=== PATIENT | female | born 1990 | race Caucasian/White ===

== ENCOUNTER 2021-07-05 07:49 | Outpatient (CLI) | payer OTHER, SELFPAY ==
--- NOTE | ~2021-07-05 | US_ITS ---
EXAMINATION: US thyroid EXAM DATE: 07/05/2021 08:44 INDICATION: Thyroid nodule evaluation, growth. TECHNIQUE: Multiple grayscale and Doppler images of the thyroid were obtained (by a technologist who performed the scan) and subsequently reviewed. Individual nodules and recommendations may be reporte d in accordance with TI-RADS system as designated by the 2017 ACR White Paper TI-RADS committee. The re is no prior study for comparison. FINDINGS: The right thyroid lobe measures 4.0 x 1.8 x 1.2 cm, the left measuring 5.4 x 1.8 x 1.1 cm. Dimensions mildly enlarged. There is homogeneous thyroid echogenicity with expected amount of vascularity. Florencia ral thyroid nodules measuring up to 5 mm in size, not likely clinically significant. IMPRESSION: Mild thyromegaly. Return to clinical follow-up and if additional palpable abnormality dev elops a repeat ultrasound can be obtained. Reviewed, dictated and finalized at location B. D CARE EDUCATION COORDINATOR IMPRESSION: Mild thyromegaly. Return to clinical follow-up and if additional pa lpable abnormality develops a repeat ultrasound can be obtained.
== END 2021-07-05 07:50 | disposition home or self-care (01) ==
PROVIDERS: PCP Internal Medicine Geriatric Medicine; Visit Provider Internal Medicine Geriatric Medicine
DX: E04.9 Nontoxic goiter, unspecified (principal)
CPT/HCPCS: 76536

== ENCOUNTER 2023-02-27 09:19 | Emergency (ER) | payer OTHER, SELFPAY ==
--- NOTE | ~2023-02-27 | XR_ITS ---
EXAMINATION: XR toe 1st RT min 2V DATE: 02/27/2023 09:48 INDICATION: Right great toe injury. TECHNIQUE: 3 views of right great toe were obtained. COMPARISON: None. FINDINGS: There is a transverse fracture of base of first distal phalanx. The distal fracture fragmen t demonstrates 5 degrees plantar angulation. Joint spaces are normal. IMPRESSION: 1. Transverse fracture of base of first distal phalanx. Reviewed, dictated and finalized at location A.
[2023-02-27 09:30] VITALS: BP 128/84; PULSE 86; RESP 18; TEMP 36.8; O2SAT 100
--- NOTE | 2023-02-27 09:59 | ED.WOUNDLAC ---
HPI - Wound/Laceration General Chief Complaint: Wound/Laceration Stated Complaint: Laceration Right Big Toe Time Seen by Provider: 02/27/23 09:56 Source: patient and RN notes reviewed Mode of arrival: ambulatory Limitations: no limitations History of Present Illness HPI narrative: 33 year old female presents with concern for injury to the 1st digit of her right foot. She reports prior to arrival she stubbed her toe on the concrete. She reports pain, bleeding. She is unsure of her tetanus status. Related Data Allergies Allergy/AdvReac Type Severity Reaction Status Date / Time No Known Allergies Allergy Verified 02/27/23 10:00 Review of Systems Review of Systems: CONSTITUTIONAL: Denies malaise, chills, sweats, or fever. SKIN: Reports bleeding to the 1st digit of the right foot MUSCULOSKELETAL: Reports pain, bleeding of the 1st digit of the right foot NEUROLOGIC: Denies numbness, weakness All systems reviewed & are unremarkable except as noted in HPI and below PMFSH Comments At time of signature, agree with nursing past medical, surgical, social and family history. There is no relevant family history pertinent to the presenting complaint Exam Narrative: GENERAL: Well-appearing, well-nourished, and in no acute distress. HEAD: Normocephalic, atraumatic. EYES: PERRLA, conjunctivae clear NECK: Supple. CHEST: Speaks in full sentences. No respiratory distress. HEART: Regular rate and rhythm. Normal and equal peripheral pulses. EXTREMITIES: 1st digit of right foot has normal sensation, range of motion difficult to excess due to pain. No edema or ecchymosis. Marked general digit tenderness. No skin tenting, no obvious deformity, alignment normal, nearby joints and structures intact. Skin warm, dry, pink. Capillary refill less than 3 seconds. SKIN: Warm, dry. Right 1st digit nail bed avulsion with continuous bleeding. NEURO: Alert and oriented x3. PSYCH: Normal mood and affect Course Course Emergency Course: I discussed this case with Dr. Mack her son who is Orthopedics on-call, he advised the patient see podiatry for the nail bed injury. Podiatry was unable to see the patient for 1 week. In the meantime patient's wound started bleeding again, for this reason I am transfer the patient to the emergency room for further treatment. Patient is agreeable to transfer. Patient agrees to proceed directly to the emergency department. Portions of this record may have been created with voice recognition software Level of Care: Express Care Visit Vital Signs Vital signs: Vital Signs Temperature 98.2 F 02/27/23 09:30 Pulse Rate 86 02/27/23 09:30 Respiratory Rate 18 02/27/23 09:30 Blood Pressure 128/84 02/27/23 09:30 Pulse Oximetry 100 02/27/23 09:30 Oxygen Delivery Room Air 02/27/23 09:30 Temperature 98.2 F 02/27/23 09:30 Pulse Rate 86 02/27/23 09:30 Respiratory Rate 18 02/27/23 09:30 Blood Pressure 128/84 02/27/23 09:30 Pulse Oximetry 100 02/27/23 09:30 Oxygen Delivery Room Air 02/27/23 09:30 Reviewed. Transfer Transfered to: [facility] Transportation: Other (private vehicle) Transfer rationale: Open fracture, avulsed nail bed, persistent bleeding Accepting physician: Fernandez Procedures Laceration Laceration 1: Date: 02/27/23 Time: 10:45 Site: lower extremity Side (If applicable): right Description: other ====== Skin Level ====== ====== Subcutaneous Layer ====== ====== Muscle Layer ====== ====== Tendon Layer ====== Dressing: Nail bed avulsed, unable to control bleeding, to simple interrupted sutures placed she is bleeding. Hemostasis achieved temporary early, patient's injury began bleeding again despite to sutures. Nerve Block Nerve Block 1: Nerve block date: 02/27/23 Nerve block time: 10:28 Time out performed: Yes Local Anesthetic: lidocaine 1% Amount of anes
--- NOTE | 2023-02-27 11:26 | PC.NURSE ---
Trying to get a follow up for physician. Patient aware. No bleeding to wound at this time.
== END 2023-02-27 11:46 | disposition short-term general hospital (02) ==
PROVIDERS: Emergency Provider Nurse Practitioner
DX: S92.421B Displaced fracture of distal phalanx of right great toe, initial encounter for open fracture (principal); W45.8XXA Other foreign body or object entering through skin, initial encounter
CPT/HCPCS: 12001; 73660; 99213; G0463

== ENCOUNTER 2023-02-27 12:42 | Emergency (ER) | payer OTHER, SELFPAY ==
[2023-02-27 13:09] VITALS: BP 110/74; PULSE 82; RESP 18; TEMP 36.4; O2SAT 100
[2023-02-27] MEDS: TETANUS,DIPHTHERIA,AC PERTUSSIS ADULT (0.5 ML) BOOSTRIX IM (16:01)
--- NOTE | 2023-02-27 16:12 | ED.LOWEXIN ---
HPI - Extremity Injury (Lower) General Chief Complaint: Extremity Injury, Lower Stated Complaint: broken toe Time Seen by Provider: 02/27/23 14:15 Source: patient Mode of arrival: ambulatory Limitations: no limitations History of Present Illness HPI Narrative: This is a 33-year-old female that presents emergency department for right great toe injury sustained today. She was evaluated at urgent care and sent here. She was prescribed antibiotics and pain medication. They did clean the wound and placed sutures. She does have an associated fracture. Reports pain and decreased range of motion. Denies numbness. Related Data Allergies Allergy/AdvReac Type Severity Reaction Status Date / Time No Known Allergies Allergy Unverified 09/29/14 12:45 Review of Systems Review of Systems: CONSTITUTIONAL: Denies fever SKIN: Reports laceration MUSCULOSKELETAL: Reports joint pain, and myalgia. NEUROLOGIC: Denies numbness All systems reviewed & are unremarkable except as noted in HPI and below PMFSH Past Medical History Medical History (Updated 02/27/23 @ 16:34 by Iman De La Cruz PA-C) No active medical problems Social History Social History (Updated 02/27/23 @ 16:34 by Iman De La Cruz PA-C) Substance use: never Exam Narrative: GENERAL: Well-appearing, well-nourished, and in no acute distress. HEAD: Normocephalic, atraumatic. EYES: EOMI. EXTREMITIES: Normal range of motion. No edema or obvious deformity. Normal sensation. Normal DP pulse. Laceration at the base of the right great toe nail with bleeding controlled. [address] SKIN: Warm, dry, no rash. NEURO: No focal deficits. Alert and oriented x3. PSYCH: Normal mood and affect Course Course Emergency Course: Patient and family agree with plan of care Consultations Consultation #1: Spoke with Dr. Nash about patient and workup who will follow up in clinic Date: 02/27/23 Vital Signs Vital signs: Vital Signs Temperature 97.6 F 02/27/23 13:09 Pulse Rate 82 02/27/23 13:09 Respiratory Rate 18 02/27/23 13:09 Blood Pressure 110/74 02/27/23 13:09 Pulse Oximetry 100 02/27/23 13:09 Temperature 97.6 F 02/27/23 13:09 Pulse Rate 82 02/27/23 13:09 Respiratory Rate 18 02/27/23 13:09 Blood Pressure 110/74 02/27/23 13:09 Pulse Oximetry 100 02/27/23 13:09 MDM - Extremity Injury (Lower) MDM Narrative Medical decision making narrative: Patient presents to the emergency department for right great toe injury sustained today. Evaluated in urgent care and sent to the ER. She does have a fracture of the distal phalanx. Had an associated avulsion of the base of the nailbed. They did suture this. The bleeding is under control. She was updated on her tetanus vaccine in the ER. She was given a prescription for antibiotics and pain medication from the urgent care. Bandaged in the ER and placed in a postop shoe and given crutches. Spoke with Dr. Nash about patient and workup who will follow up in clinic. She was given warnings to return to the ER Differential Diagnosis Differential diagnosis: Likely fracture of toe and other (nail avulsion) Medical Records Attestation: I reviewed the patient's medical records. Imaging Data Radiologist's impression: Right great toe x-ray shows transverse fracture at the base of the distal phalanx Critical Care Time Critical Care Time Critical Care Time: No Discharge Plan Discharge Clinical Impression: Fracture of toe, open Qualifiers: Encounter type: subsequent encounter Toe: great toe Phalanx: distal Fracture alignment: nondisplaced Laterality: right Fracture healing: with routine healing Qualified Code(s): S92.424D - Nondisplaced fracture of distal phalanx of right great toe, subsequent encounter for fracture with routine healing Patient Disposition: Home, Self-Care Condition: Stable Instructions: Antibiotic Form, Toe Fracture (ED) Additional Instructions: Retu
[2023-02-27 16:25] VITALS: BP 124/84; PULSE 72; RESP 18; TEMP 36.8; O2SAT 100
== END 2023-02-27 16:25 | disposition home or self-care (01) ==
PROVIDERS: Emergency Provider Physician Assistant; PCP Internal Medicine Geriatric Medicine
DX: S92.424B Nondisplaced fracture of distal phalanx of right great toe, initial encounter for open fracture (principal); Z23 Encounter for immunization; W01.0XXA Fall on same level from slipping, tripping and stumbling without subsequent striking against object, initial encounter
CPT/HCPCS: 73660; 90471; 90715; 99284

== ENCOUNTER 2024-06-04 12:37 | Outpatient (CLI) | payer OTHER, SELFPAY ==
--- NOTE | ~2024-06-04 | MR_ITS ---
EXAMINATION: MR wrist RT wo con DATE: 06/04/2024 13:25 INDICATION: Right wrist pain TECHNIQUE: Magnetic resonance imaging (MRI) of the right wrist was performed without intravenous cont rast. Sequences performed include axial PD-weighted FSE and PD-weighted FS FSE, coronal PD-weighted F S FSE and T1-weighted SE, and sagittal PD-weighted FS FSE and PD-weighted FSE. COMPARISON: 07/01/2008 FINDINGS: Intrinsic ligaments: The scapholunate and lunotriquetral ligaments are normal. Triangular fibrocartilage complex (TFCC): The triangular fibrocartilage including its foveal and styloid attachments as well as the dorsal and volar radioulnar ligaments are normal. The ulnar collateral ligament, ulnotriquetral ligament and men iscal homologue are normal. Extensor wrist: Extensor tendons of the wrist are normal. No tenosynovitis. Flexor wrist: The flexor tendons of the wrist are normal. No abnormality in the carpal tunnel with normal median n erve. Guyon's canal: Guyon's canal including the ulnar nerve and artery are normal. Bones/other: Small low signal intensity likely sclerotic bone island at the volar aspect of the lunate. Otherwise normal marrow signal. No fracture, erosions, avascular necrosis or pathologic marrow replacing proces s. Joint spaces are normal with no focal cartilage defects appreciated. The marker indicating the si te of maximal pain is positioned over the radial side of the volar aspect of the wrist. IMPRESSION: 1. Normal MRI of the right wrist. No etiology identified for reported volar/radial sided right wrist pain. Reviewed, dictated and finalized at location A. PATHOLOGY TECHNOLOGIST IMPRESSION: 1. Normal MRI of the right wrist. No etiology identified for reported volar/rad ial sided right wrist pain.
== END 2024-06-04 12:38 | disposition home or self-care (01) ==
LOC: MICIMG 12:39
PROVIDERS: PCP Internal Medicine Geriatric Medicine
DX: M25.531 Pain in right wrist (principal)
CPT/HCPCS: 73221

== ENCOUNTER 2024-09-05 08:16 | Outpatient (CLI) | payer OTHER, SELFPAY ==
--- NOTE | ~2024-09-05 | US_ITS ---
Pelvic ultrasound. Clinical History: Dysmenorrhea Technique: Realtime transabdominal and transvaginal scanning of the pelvis was performed. Color flow Doppler and Doppler spectral analysis were performed. Findings: The uterus is anteverted. The endometrial stripe has a thickness of 8 mm. No focal mass is identified. The right ovary measures 4.4 x 2.6 x 2.6 cm. No significant right ovarian or adnexal mass is seen. The left ovary measures 4.3 x 3.2 x 2.9 cm. No significant left ovarian or adnexal mass is seen. There is no evidence of free fluid in the cul de sac. Impression: No significant abnormality seen. Reviewed, dictated and finalized at [facility]. Impression: No significant abnormality seen.
== END 2024-09-05 08:17 | disposition home or self-care (01) ==
PROVIDERS: PCP Internal Medicine Geriatric Medicine; Visit Provider Nurse Practitioner Women's Health
DX: N94.6 Dysmenorrhea, unspecified (principal)
CPT/HCPCS: 76830; 76856

== ENCOUNTER 2024-11-24 09:16 | Outpatient (CLI) | payer OTHER, SELFPAY ==
[2024-11-24 09:55] LABS: Hematocrit 40.4 % (37.0-47.0); Hemoglobin 13.7 g/dL (12.0-15.0); Mean Corpuscular HGB Conc 33.9 g/dl (32-36); Mean Corpuscular Hemoglobin 30.3 pg (26-34); Mean Corpuscular Volume 89.4 fl (80-100); Mean Platelet Volume 9.7 fl (7.4-10.4); Platelet Count Result 294 k/mm3 (150-375); Red Blood Count 4.52 M/mm3 (4.2-5.4); Red Cell Distribution Width 12.8 % (11.5-14.5); White Blood Count 7.8 K/mm3 (4.5-10.0)
--- OUTSIDE RECORDS SUMMARY | 2024-11-24 09:57 | XMS_ITS | Referral Summary ---
Author Organization [facility] Address [address] [place] [address] Care Team Providers Care Hot Punch Press Operator Name Role Phone Denis Cervantes MD Primary Care Provider + Encounters Date Type Department Care Team Description 09/17/2024 Transcribe Orders [facility] [address] [place] [address] [address] [place] [address] Peyton Modi NP Dysmenorrhea (Primary Dx) from Last 3 Months Allergies No known active allergies Medications diclofenac sodium (VOLTAREN) 1 % gel Apply 2 g topically 4 (four) times a day 50 g 4 Active Active Problems No known active problems Social History Tobacco Use Types Packs/Day Years Used Date Smoking Tobacco: Never Tobacco Cessation:Counseling Given: Not Answered Alcohol Use Standard Drinks/Week Comments No 0 (1 standard drink = 0.6 oz pur e alcohol) Comments No Sex and Gender Information Value Date Recorded Sex Assigned at Not on file Legal Sex Female 4:22 PM CITIZENSHIP TEACHER Gender Identity Not on file Sexual Orientation Not on file Last Filed Vital Signs Vital Sign Reading Time Taken Comments Blood Pressure 132/82 06/17/2021 8:10 AM CITIZENSHIP TEACHER Pulse 112 06/17/2021 8:10 AM CITIZENSHIP TEACHER Temperature 37.3 C (99.1 F) 06/17/2021 8:10 AM CITIZENSHIP TEACHER Respiratory Rate 16 06/17/2021 8:10 AM CITIZENSHIP TEACHER Oxygen Saturation 98% 06/17/2021 8:10 AM CITIZENSHIP TEACHER Inhaled Oxygen Concentration - - Weight 59 kg (130 lb) 04/18/2024 1:58 PM CDT Height 165.1 cm (5' 5) 04/18/2024 1:58 PM CDT Body Mass Index 21.63 04/18/2024 1:58 PM CDT Plan of Treatment Not on file Insurance [facility] CHOICE PLUS AETNA COVENTRY HMO/POS [facility] CHOICE PLUS Care Teams Hot Punch Press Operator Relationship Specialty [place] [address] [place] [address] PCP - General 07/13/08
--- OUTSIDE RECORDS SUMMARY | 2024-11-24 09:57 | XMS_ITS | Clinical Summary ---
Author Organization [facility] Address [address] [place] [address] Care Team Providers Care Electorate Officer Name Role Phone Denis Cervantes MD Primary Care Provider + Allergies No known active allergies Medications diclofenac sodium (VOLTAREN) 1 % gel Apply 2 g topically 4 (four) times a day 50 g 4 Active Active Problems No known active problems Encounters Date Type Department Care Team Description 09/17/2024 Transcribe Orders [facility] [address] [place] [address] [address] [place] [address] Peyton Modi NP Dysmenorrhea (Primary Dx) from Last 3 Months Surgical History Surgery Date Site/Laterality Comments OTHER SURGICAL HISTORY removal of lymph nodes Social History Tobacco Use Types Packs/Day Years Used Date Smoking Tobacco: Never Tobacco Cessation:Counseling Given: Not Answered Alcohol Use Standard Drinks/Week Comments No 0 (1 standard drink = 0.6 oz pur e alcohol) Comments No Sex and Gender Information Value Date Recorded Sex Assigned at Not on file Legal Sex Female 4:22 PM BYPRODUCTS MAKER Gender Identity Not on file Sexual Orientation Not on file Obstetrics History Last Filed Vital Signs Vital Sign Reading Time Taken Comments Blood Pressure 132/82 06/17/2021 8:10 AM BYPRODUCTS MAKER Pulse 112 06/17/2021 8:10 AM BYPRODUCTS MAKER Temperature 37.3 C (99.1 F) 06/17/2021 8:10 AM BYPRODUCTS MAKER Respiratory Rate 16 06/17/2021 8:10 AM BYPRODUCTS MAKER Oxygen Saturation 98% 06/17/2021 8:10 AM BYPRODUCTS MAKER Inhaled Oxygen Concentration - - Weight 59 kg (130 lb) 04/18/2024 1:58 PM CDT Height 165.1 cm (5' 5) 04/18/2024 1:58 PM CDT Body Mass Index 21.63 04/18/2024 1:58 PM CDT Plan of Treatment Health Maintenance Due Date Last Done Comments Cervical Cancer Screening 1991 Depression Screening 1991 Hepatitis C Screening 1991 Varicella Vaccines (1 of 2 - 13+ 2-dose series) 01/31/2004 Hepatitis B Screening 2009 Regular Well Visit/Exam 18-64 2009 Influenza Vaccine (Season Ended) 2025 DTaP/Tdap/Td Vaccine (2 - Td or Tdap) 12/01/2026 12/01/2016 HPV Vaccines Aged Out No longer eligi ble based on patient's age to complete this topic Pneumococcal vaccine <65 Aged Out No longer eligible based on patient's age to complete this topic Insurance [facility] CHOICE PLUS AETNA COVENTRY HMO/POS [facility] CHOICE PLUS Care Teams Electorate Officer Relationship Specialty [place] [address] [facility] [address] PCP - General 07/13/08
== END 2024-11-24 09:17 | disposition home or self-care (01) ==
LOC: ANHLAB 09:17
PROVIDERS: PCP Internal Medicine Geriatric Medicine; Visit Provider Student in an Organized Health Care Education/Training Program
DX: N93.9 Abnormal uterine and vaginal bleeding, unspecified (principal)
CPT/HCPCS: 36415; 85027; 86850; 86900; 86901

== ENCOUNTER 2024-11-25 01:06 | Day surgery (SDC) | payer OTHER, SELFPAY ==
[2024-11-19 10:43] VITALS: BMI 24.7
--- NOTE | 2024-11-19 10:52 | PC.NURSE ---
Report to the Outpatient Waiting Room, entrance under the green pavilion located off [facility], at time _0600_ on date _[id number]_. Planned Procedure Time: _0730_.? Time changes happen often and if your time is changed the preop area will call you the afternoon before. - You and your visitor will be asked to self-screen and do not enter if you have any COVID symptoms. Please call surgeon if you need to reschedule. - A mask is optional within the hospital at this time. Patients may have clear liquids (water, carbonated beverages, clear teas, apple juice) until 3 hours prior to surgery with a maximum of 20 ounces. - No food from midnight until time of surgery and no smoking, or chewing tobacco (or any form of nicotine). No chewing gum, candy or mints. Take only the following medications with a SIP of water on the morning of surgery: ___None____ DO NOT STOP ANY OF YOUR OTHER PRESCRIPTION MEDICATIONS PRIOR TO SURGERY EXCEPT THE FOLLOWING Hold all vitamins and supplements for 3 days per anesthesiologist. Medications to discontinue per physician Date to take last dose Please no make-up, nail cameroonian, hairspray, perfume, deodorant, or body powder the day of surgery.? No jewelry (including any body piercings) or valuables the day of surgery, leave them at home.? Please take a shower or bath the night before, or the morning of, surgery with an antibacterial soap.? Wear comfortable, loose fitting clothing.? - Jewelry must be removed prior to entering the operating room.? Rings and piercings that are not removed may be cut off. - The hospital will not accept responsibility for valuables.? - Please leave all valuables, including medications, at home the day of surgery. If you are going home after surgery, a licensed dolly driver must drive you home.? - NO public transportation without another adult if you receive anesthesia. - We recommend that an adult stay with you for 24 hours following discharge. - We also recommend that you do not drive, make important decision, drink alcoholic beverages, or take any drugs that were not prescribed by your health care provider for at least 24 hours after your discharge time. Follow any additional instructions given to you from your surgeon. Telephone instructions given to __Kody___and asked if any additional questions and then verbalized understanding. Patient advised to call surgeon office or pre surgery nurse liaison [phone] if any additional questions.
--- NOTE | 2024-11-24 12:59 | P.HP_ITS ---
H&P: HPI History of Present Illness Date/Time: 11/24/24 12:59 Chief Complaint: dysmenorrhea abnormal uterine bleeding pelvic pain Narrative: 34 yo female who presents for robotic TLH/BS. Patient has dealt with dys menorrhea her whole life. Patient states she took OCPs for 6 or 7 years previously. Patient states she continued to have dysmenorrhea and heavy bleeding despite OCPs. Patient has always had suspected endometriosis. She has never had laparoscopy to prove diagnosis. Patient felt like her last provider was not listening to her complaints. Patient has never been . Patient does not wish to conceive in the future. Review of Systems Cardiovascular: Cardiovascular: Denies chest pain, Denies leg edema, Denies palpitations, Denies dyspnea and Denies dyspnea on exertion Respiratory: Respiratory: Denies cough, Denies dyspnea and Denies dyspnea on exertion Gastrointestinal: Gastrointestinal: Denies abdominal pain, Denies constipation, Denies diarrhea, Denies nausea and Denies vomiting Genitourinary: Genitourinary: Denies hematuria, Denies urinary frequency, Denies dysuria, Denies pelvic pain, Denies urinary incontinence and Denies vaginal discharge Neurologic: Reports system reviewed and no additional complaints, except as documented Psychiatric: Psychiatric: Reports no additional psychiatric complaints Endocrine: Endocrine: Denies palpitations PMFSH Past Medical History Medical History No active medical problems Surgical History Surgical History H/O lymph node excision Family History Family History Father Throat cancer Depression Mother Depression Hypertension Grandparent Diabetes mellitus Other Asthma Social History Social History Smoking status: Never smoker Alcohol intake: current Alcohol use details: rare Substance use: never Substance use type: does not use Do You Feel Safe in your Home?: Yes Lack of Transportation: No Lack of Food: Never True Current Housing: I Have Housing Concerned About Future Housing: No Difficulty Paying Gas/Electric Bills: No Difficulty Paying for Meds: No Currently Unemployed: No Education: Bachelor's Degree Difficulty w/ Childcare or Family Care: No Living arrangements: with family Occupation/Education: occupation Gender identity (if verbalized by the patient): Female Sexual Orientation (if Verbalized by the Patient): Straight or Heterosexual Spiritual care concerns: No Meds Home Medications and Allergies Home Medications ?Medication ?Instructions ?Recorded ?Confirmed ?Type No Home Medications 10/08/24 11/19/24 History Allergies Allergy/AdvReac Type Severity Reaction Status Date / Time latex Allergy Mild Rash Verified 11/19/24 10:43 Exam Const: General: no acute distress Eyes: EOM: EOMs intact bilaterally Neck: Neck: supple Thyroid: thyroid normal Chest: Breast/axilla inspection: normal inspection of the breasts Breast/axilla palpation: normal palpation of the breasts, normal palpation of the axillae and no axillary lymphadenopathy Resp: Effort & Inspection: normal respiratory effort Auscultation: clear to auscultation bilaterally Cardio: Rate: regular rate Rhythm: regular rhythm GI: Inspection: non-distended GI Palp: Yes Soft to palpation, No Tenderness to palpation present (GI) and No Guarding due to palpation present (GI) Auscultation: normal bowel sounds : General: No bladder normal to palpation External Female Exam: normal external appearance Speculum Exam - Vagina: normal vaginal discharge and No vaginal bleeding Speculum Exam - Cervix: nontender Bimanual exam- vagina & uterus: No bladder normal to palpation and No Cervical tenderness present OB/external & speculum: No vaginal bleeding Skin: General skin exam: normal color and no rashes or lesions noted Neuro: Cognition (Neuro): normal cognition Speech: normal speech Extrem: General: normal to inspection and no edema Psych: Mental Status: mental status grossly normal Affect: normal affect Assessment and Plan Assessment and plan (1) Dysmenorrhea: Code(s): N94.6 - Dysmenorrhea, unspecified Status: Acute Assessment and Plan: 34-year-old female who presents for hysterectomy Patient has dealt with chronic pelvic pain, dysmenorrhea, abnormal uterine bleeding for several years Patient's sister had a hysterectomy secondary to endometriosis Patient has tried hormonal contraceptives in the past Insurance would not approve endometriosis medications Patient wishes to proceed with hysterectomy Risks, benefits, alternatives reviewed Will proceed with robotic assisted TLH /BS (2) Abnormal uterine bleeding (AUB): Code(s): N93.9 - Abnormal uterine and vaginal bleeding, unspecified Status: Acute (3) Pelvic pain: Code(s): R10.2 - Pelvic and perineal pain Status: Acute
[2024-11-25] VITALS (9 sets, daily range): BP systolic 100–123; BP diastolic 54–99; PULSE 70–102; RESP 16–24; TEMP 36.1–36.8; O2SAT 96–100
--- OUTSIDE RECORDS SUMMARY | 2024-11-25 01:09 | XMS_ITS | Clinical Summary ---
Author Organization [facility] Address [address] [place] [address] Care Team Providers Care Bell Tier Name Role Phone Denis Cervantes MD Primary Care Provider + Allergies No known active allergies Medications diclofenac sodium (VOLTAREN) 1 % gel Apply 2 g topically 4 (four) times a day 50 g 4 Active Active Problems No known active problems Encounters Date Type Department Care Team Description 09/17/2024 Transcribe Orders [facility] [address] [place] [address] [address] [place] [address] Peyton Modi NP Dysmenorrhea (Primary [...] on file Legal Sex Female 4:22 PM DIE REPAIR MACHINIST Gender Identity Not on file Sexual Orientation Not on file Obstetrics History Last Filed Vital Signs Vital Sign Reading Time Taken Comments Blood Pressure 132/82 06/17/2021 8:10 AM DIE REPAIR MACHINIST Pulse 112 06/17/2021 8:10 AM DIE REPAIR MACHINIST Temperature 37.3 C (99.1 F) 06/17/2021 8:10 AM DIE REPAIR MACHINIST Respiratory Rate 16 06/17/2021 8:10 AM DIE REPAIR MACHINIST Oxygen Saturation 98% 06/17/2021 8:10 AM DIE REPAIR MACHINIST Inhaled Oxygen Concentration - - Weight 59 [...] patient's age to complete this topic Insurance [facility] CHOICE PLUS AETNA COVENTRY HMO/POS [facility] CHOICE PLUS Care Teams Bell Tier Relationship Specialty [place] [address] [facility] [place] [address] PCP - General 07/13/08
--- OUTSIDE RECORDS SUMMARY | 2024-11-25 01:09 | XMS_ITS | Referral Summary ---
Author Organization [facility] Address [address] [place] [address] Care Team Providers Care Organ Pipe Voicer Name Role Phone Denis Cervantes MD Primary Care Provider + Encounters Date Type Department Care Team Description 09/17/2024 Transcribe Orders [facility] [address] [place] [address] [address] [place] [address] Peyton Modi NP Dysmenorrhea (Primary [...] on file Legal Sex Female 4:22 PM LAW RESEARCHER Gender Identity Not on file Sexual Orientation Not on file Last Filed Vital Signs Vital Sign Reading Time Taken Comments Blood Pressure 132/82 06/17/2021 8:10 AM LAW RESEARCHER Pulse 112 06/17/2021 8:10 AM LAW RESEARCHER Temperature 37.3 C (99.1 F) 06/17/2021 8:10 AM LAW RESEARCHER Respiratory Rate 16 06/17/2021 8:10 AM LAW RESEARCHER Oxygen Saturation 98% 06/17/2021 8:10 AM LAW RESEARCHER Inhaled Oxygen Concentration - - Weight 59 kg (130 lb) 04/18/2024 1:58 PM CDT Height 165.1 cm (5' 5) 04/18/2024 1:58 PM CDT Body Mass Index 21.63 04/18/2024 1:58 PM CDT Plan of Treatment Not on file Insurance [facility] CHOICE PLUS [facility] HMO/PPO Address: [address] [address] [place] [address] AETNA COVENTRY HMO/POS [facility] CHOICE PLUS [facility] HMO/PPO [place] [address] Care Teams Organ Pipe Voicer Relationship Specialty [place] [address] [place] [address] PCP - General 07/13/08
--- OUTSIDE RECORDS SUMMARY | 2024-11-25 01:09 | XMS_ITS | Continuity of Care Document ---
Author Organization [facility] Address [address] [facility] [address] [place] [address] Phone Care Team Providers Care Diesel Motor Mechanic Name Role Phone Brittni Browne OT Unavailable Unavailable Procedures Procedure Date Identified as not an unhealthy alcohol u ser Not identified as unhealthy alcohol via screening OT Re-Evaluation Neuromuscular Re-Ed Therapeutic Activities Therapeutic Exercise Manual Therapy Ultrasound Therapeutic Activities Neuromuscular Re-Ed Therapeutic Exercise Manual Therapy Ultrasound Therapeutic Activities Neuromuscular Re-Ed Therapeutic Exercise Manual Therapy Ultrasound Therapeutic Activities Neuromuscular Re-Ed Therapeutic Exercise Ultrasound Manual Therapy Therapeutic Activities Neuromuscular Re-Ed Therapeutic Exercise Manual Therapy Ultrasound Therapeutic Activities Neuromuscular Re-Ed Therapeutic Exercise Manual Therapy Ultrasound Therapeutic Activities Neuromuscular Re-Ed Therapeutic Exercise Manual Therapy Ultrasound Therapeutic Activities Therapeutic Exercise Neuromuscular Re-Ed Manual Therapy Ultrasound Therapeutic Activities Neuromuscular Re-Ed Manual Therapy Therapeutic Exercise Ultrasound Therapeutic Activities Neuromuscular Re-Ed Therapeutic Exercise Manual Therapy Ultrasound Therapeutic Activities Therapeutic Exercise Neuromuscular Re-Ed Manual Therapy Ultrasound Therapeutic Activities Neuromuscular Re-Ed [...] Diagnoses Date Provider Providers Copied on Encounter [facility] [address] [address], [place], [place], [id number], tel:[phone] [place] No Information October-2 9- 5 Browne Brittni. . Referring Provider: Kaycee Knott [address], [place], [address]. tel:[phone] [place], [place] [id number] [facility], [place], [place], [address], tel:[phone] [place] No Information 2 2- 5 Browne Brittni. . Referring Provider: Kaycee Knott [address], [place], [address]. tel:[phone] [place], [place] [id number] [facility] [address], [place], [place], [id number], tel:[phone] [place] No Information October-1 5-202 5 Browne Brittni. . Referring Provider: Kaycee Knott [address], [place], [address]. tel:[phone] [place] [address] [address] [facility] [address], [place], [place], [address], tel:[phone] [place] No Information May-0 8-202 5 Browne Brittni. . Referring Provider: Kaycee Knott [address], [place], [address]. tel:[phone] [place], [place] [address] [address], [place], [place], [id number], tel:[phone] [place] No Information May-0 1-202 5 Browne Brittni. . Referring Provider: Kaycee Knott [address], [place], [address]. tel:[phone] [place] [address], [address], [place], [address], [place] tel:[phone] [place] No Information Apr-2 4-202 5 Browne Brittni. . Referring Provider: Kaycee Knott [facility] [address], [place], [address]. tel:[phone] [place] [address], [address], [place], [place], [address], [place] tel:[phone] [place] No Information Apr-1 0-202 5 Browne Brittni. . Referring Provider: Kaycee Kontt [facility] [address], [place], [address]. tel:[phone] [place] [address], [address], [place], [place], [address], [place] tel:[phone] [place] No Information Mar-2 7-202 5 Browne Brittni. . Referring Provider: Kaycee Knott [facility] [address], [place], [address]. tel:[phone] [place] [address], [address], [place], [id number], [place] tel:[phone] [place] No Information Mar-2 0-202 5 Browne Brittni. . Referring Provider: Kaycee Knott [facility] [address], [place], [address]. tel:[phone] [place] [address], [address], [place], [address], [place] tel:[phone] [place] No Information Mar-1 3-202 5 Browne Brittni. . Referring Provider: Kaycee Knott [facility] [address], [place], [address]. tel:[phone] [place] [address], [address], [place], [address], [place] tel:[phone] [place] No Information 5 Browne Brittni. . Referring Provider: Kaycee Knott [facility] [address], [place], [address]. tel:[phone] [place] [address] [address], [place], [place], [address], tel:[phone] [place] No Information 5 Browne Brittni. . Referring Provider: Kaycee Knott [facility] [address], [place], [address]. tel:[phone] [place] [address], [address], [place], [place], [address], [place] tel:[phone] [place] No Information 5 Browne Brittni. . Referring Provider: Kaycee Knott [facility] [address], [place], [address]. tel:[phone] [place] [address] [address], [place], [place], [address], [place] tel:[phone] [place] No Information 5 Browne Brittni. . Referring Provider: Kaycee Knott [facility] [address], [place], [address]. tel:[phone] [place] [address] [address], [place], [place], [address], [place] tel:[phone] [place] No Information 5 Browne Brittni. . Referring Provider: Kaycee Knott [facility] [address], [place], [address]. tel:[phone] [place], [place] [address] [address], [place], [place], [address], [place] tel:[phone] [place] No Information 5 Browne Brittni. . Referring Provider: Kaycee Knott [facility] [address], [place], [address]. tel:[phone] [place] [address] [address], [place], [place], [address], tel:[phone] [place] No Information Pavan Elkins. . Referring Provider: Mel Brown [address], [place], [address]. tel:[phone] [facility], [address], [place], [place], [address], tel:[phone] [place] No Information Pavan Elkins. . Referring Provider: Mel Brown [address], [place], [address]. tel:[phone] Family History Family Member Type Diagnosis Age At Onset No Information Payers Payer name Insurance type Covered green party ID Mali rutledge(s) Derricktna [id number] Social History Type Description Quantity Date Captured [...]
[2024-11-25] MEDS: ACETAMINOPHEN 500 MG TABLET 1000 MG PO ×3 (06:25→17:50)
[2024-11-25] MEDS: KETOROLAC 15 MG/ML VIAL (*BKC) IV PUSH (06:30)
[2024-11-25] MEDS: LACTATED RINGERS 1,000 ML 30 ML IV CONT ×2 (06:30→08:56)
--- NOTE | 2024-11-25 06:38 | P.PNAN_ITS ---
Anes - Initial Pre Proc Eval Procedure: Operation Date: 11/25/24 07:30 Proposed Procedures p Robotic Assisted Total Laparoscopic Hysterectomy with Bilateral Salpingectomy - Anthony Cruz MD Date/Time: 11/25/24 06:38 Surgeon: Anthony Cruz MD Pre Op Diagnosis: Abnormal Uterine Bleeding Patient Data Age: 34 Gender: F Height: 1.65 m Weight: 67.3 kg Allergies Allergy/AdvReac Type Severity Reaction Status Date / Time latex Allergy Mild Rash Verified 11/19/24 10:43 Home Medications ?Medication ?Instructions ?Recorded ?Confirmed ?Type No Home Medications 10/08/24 11/19/24 History Patient hx anesthesia problems: none Family hx anesthesia problems: none Results Review: All pre-operative results and documents have been reviewed as part of the pre- operative evaluation. FOR[facility]LY [facility], [facility] Past Medical History Medical History (Updated 11/25/24 @ 06:38 by Eron Medina MD) Pelvic pain Abnormal uterine bleeding (AUB) Dysmenorrhea Surgical History Surgical History H/O lymph node excision Family History Family History Father Throat cancer Depression Mother Depression Hypertension Grandparent Diabetes mellitus Other Asthma Social History Social History Smoking status: Never smoker Alcohol intake: current Alcohol use details: rare Substance use: never Substance use type: does not use Do You Feel Safe in your Home?: Yes Lack of Transportation: No Lack of Food: Never True Current Housing: I Have Housing Concerned About Future Housing: No Difficulty Paying Gas/Electric Bills: No Difficulty Paying for Meds: No Currently Unemployed: No Education: Bachelor's Degree Difficulty w/ Childcare or Family Care: No Living arrangements: with family Occupation/Education: occupation Gender identity (if verbalized by the patient): Female Sexual Orientation (if Verbalized by the Patient): Straight or Heterosexual Spiritual care concerns: No Anes - Eval Final PreProcedure Day of Procedure 11/25/24 06:38 Patient weight: normal Heart: regular rate and rhythm Lungs: clear to auscultation Airway: Mallampati scale class II Neurological: alert and oriented Last oral intake: >/= 8 hours ASA classification: I Emergent: no Anesthetic plan: proceed Anesthesia type and monitoring: general ETT and standard monitoring Results Review: All pre-operative results and documents have been reviewed as part of the pre- operative evaluation. Informed Consent: The patient's anesthetic plan and its attendant risks and benefits were discussed with the patient/family/POA. Questions were solicited and answers provided to the satisfaction of the patient/family/POA.
--- NOTE | 2024-11-25 06:44 | WPDHPUPDATE1 ---
History and Physical Update Update Date/Time: 11/25/24 06:44 History and Physical has been reviewed, including an updated exam of the patient. There are NO changes in the patient's condition. Risks, benefits, and alternatives have been discussed and questions answered. Patient agrees to proceed with procedure.
[2024-11-25 06:45] LABS: BEDSIDEPREGUCG Negative (Negative)
[2024-11-25] MEDS: SCOPOLAMINE 1 MG PATCH 1 PATCH TRANSDERM (06:48)
[2024-11-25] MEDS: ceFAZolin 2 GM/D5W 50 ML 2 GM/50 ML BAG IVPB (07:27)
--- NOTE | 2024-11-25 08:07 | S_PTH ---
PATIENT: Kody Salcido LOC: [facility] U#:[id number] AGE/SX: 34/F ROOM: RE11/25/[address]: Anthony Cruz MD : 1990 BED: DIS: 11/26/2024 SPEC #: [id number] RECD: 11/25/24 09:17 STATUS: DEWAYNE REQ #: [id number] TAMMY: 11/25/24 08:[address]: Anthony Cruz DEPT: [facility] [place] Surgical RECD BY: Reed Mejia ENTERED: 11/25/24 09:17 SP TYPE: Surgical OTHR DR: Denis CervantesMD Tissues: A - Peritoneal Bx B - Uterus Procedures: Hematoxylin and Eosin Stain Gross and Microscopic Level 4 Gross and Microscopic Level 5
[2024-11-25] MEDS: LIDO 1%/EPINEPHRINE 1:100,000 20 ML VIAL INFILTRATE (08:11)
--- NOTE | 2024-11-25 08:41 | P.OP_ITS ---
Procedure Note - Detailed Date of Procedure 11/25/24 Pre-op Diagnosis Abnormal Uterine Bleeding dysmenorrhea pelvic pain Post-op Diagnosis Same Procedure Performed robotic assisted total laparoscopic hysterectomy and bilateral salpingectomy resection/ablation of endometriosis Surgeon Anthony Cruz MD Anesthesia General Indications pelvic pain dysmenorrhea AUB Findings endometriosis implants noted in the posterior cul de sac normal appearing uterine serosa, normal ovaries bilaterally dicidual change noted on the fallopian tubes bilaterally Description of Procedure After the patient was appropriately consented she was taken to the operating room where she was transferred to the table in a dorsal supine position. General anesthesia was then induced with endotracheal intubation. The patient was transferred to a dorsal lithotomy position using adjustable yellow-fin stirrups. Her position was adjusted for appropriate support of her lower back and lower extremities. The patient was prepped and draped. A transurethral hollis catheter was place. The cervix was sequentially dilated and a KAMILLA uterine manipulator placed in typical fashion about a 3cm JOSE MARTIN ring. Gloves were changed. After confirmation of a functioning orogastric tube, lidocaine was injected at Macias's point in the LUQ and a 8mm incision was made. A 5mm Optiview trocar was then inserted into the abdominal cavity under direct visualization and done so without complication. The abdomen was then insufflated with approximately 2-3L of CO2 establishing a pneumoperitoneum and the patient was placed in Trendelenburg position. Just above the umbilicus in the midline, a 8mm incision made after injection of lidocaine and a 8 mm bladeless trocar advanced into the abdominal cavity under direct visualization without incident. We subsequently placed two robotic ports in a similar fashion, one in the left mid-quadrant and one in the right, 10cm lateral to the midline port. The robot was then docked. Pelvic survey was performed. Gun powder lesions consistent with endometriosis were noted in the posterior cul de sac. One lesions was excised using monopolar scissors and sent for pathology as peritoneal biopsy. The remaining endometri osis lesions were cauterized with monopolar energy. Attention was turned to the left pelvis. The left fallopian tube was removed by sequentially dividing the mesosalpinx towards the uterus sparing the ovary. The utero-ovarian ligament was desiccated and transected, as was the round ligament. The posterior peritoneal leaf was taken down to the JOSE MARTIN ring. The anterior leaf was developed as well as the start of the bladder flap. The left uterine artery was then skeletonized and desiccated and transected just above the level of the JOSE MARTIN ring. Attention was turned to the right pelvis. The right fallopian tube was removed by sequentially dividing the mesosalpinx towards the uterus sparing the ovary. The utero-ovarian ligament was desiccated and transected, as was the round ligament. The posterior peritoneal leaf was taken down to the JOSE MARTIN ring. The anterior leaf was developed as well as the start of the bladder flap. The right uterine artery was then skeletonized and desiccated and transected j ust above the level of the JOSE MARTIN ring. The bladder was then further dissected inferiorly over the level of the JOSE MARTIN ring. A circumferential colpotomy was made using monopolar current. The uterus, cervix, bilateral tubes were then delivered transvaginally. I then placed a single figure of eight suture of 0-vicryl in the left corner of the vaginal cuff. I then re-approximated the colpotomy with a running #1 PDO Quill suture in 2 layers. Following this dissection, the abdomen and pelvis were copiously irrigated and all surgical sites found to be hemostatic. Skin sites were reapproximated with 4-0 Vicryl in a subcuticular fashion. Steri-Strips were placed. The patient tolerated the procedure well. Sponge, needle and instrument counts were correct x 2 and the patient was taken to recovery in stable condition. Ancef was given for antimicrobial prophylaxis. The patient had SCD's on for VTE prophylaxis during the entire procedure. Estimated Blood Loss 25 Drains No Packing No Pathology Yes (cervix, uterus, bilateral fallopian tubes, peritoneal biopsy) Complications No immediate complications Condition Stable Disposition PACU [facility] Billing Surgery - Charge Forward: Surgery Billing
[2024-11-25] MEDS: fentaNYL CITRATE INJ (*CRX) 100 MCG/2 ML VIAL 25 MCG IV PUSH ×4 (09:08→09:34)
--- NOTE | 2024-11-25 09:55 | ADMGEN ---
This patient, Kody Salcido, was admitted to OB 2nd Floor Room 288-00. Patient/family oriented to hospital policies and general routines including ID bracelet, bed and alarms, visiting hours, pain management, procedures, bathroom and other care routines, personal items, smoking policy, room service/diet, and visiting hours. Information on how to activate the Rapid Response Team has been discussed. Patient/Family are encouraged to report perceived risks to care and to ask questions if they do not understand what they are told or what they should do.
[2024-11-25] MEDS: oxyCODONE HCL (*CRX) 5 MG TAB IR PO (10:23)
--- NOTE | 2024-11-25 11:46 | P.DS_ITS ---
DS: Admitting Diagnosis Discharge Date 11/26/24 Admitting Diagnosis abnormal uterine bleeding pelvic pain dysmenorrhea DS: Discharge Diagnosis Discharge Diagnosis (1) Status post hysterectomy: Code(s): Z90.710 - Acquired absence of both cervix and uterus Status: Acute DS: Summary Hospital Course Hospital Course: Kody Salcido was admitted after robotic assisted total laparoscopic hysterectomy and bilateral salpingectomy for abnormal uterine bleeding, dysmenorrhea, and pelvic pain. The above procedure was performed with no complications. She is doing well post op. She states her pain is well controlled with PO medications. She reports minimal bleeding. She is ambulating up to the chair. Her hollis catheter was removed. She is tolerating PO without N/V. She reports passing flatus. Status at Discharge Overall status at discharge: patient is progressing back to baseline Time Spent with Patient Time attestation: Total time spent providing and/or coordinating discharge services: Time spent: Less than 30 minutes Exam Const: General: comfortable and no acute distress Limitations: no limitations Resp: Effort & Inspection: normal respiratory effort Auscultation: clear to auscultation bilaterally Cardio: Rate: regular rate Rhythm: regular rhythm GI: Inspection: non-distended GI Palp: Yes Soft to palpation, Yes Tenderness to palpation present (GI) (milder tenderness to deep palpation) and No Guarding due to palpation present (GI) Auscultation: normal bowel sounds Other: incisions C/D/I covered with dermabond Urinary Catheter: Urinary Catheter: urine clear Skin: General skin exam: normal color Extrem: General: normal to inspection Psych: Mental Status: mental status grossly normal Affect: normal affect DS: Data Data Completed and Pending Pending studies at discharge: Pending at discharge 11/25/24 08:07 Surgical [PTH] Routine Surgical [PTH] Routine Labs on day of discharge: Labs from last 24 hours 11/25/24 06:43 POC Urine HCG, Qual Negative Discharge Plan Discharge Patient Disposition: Home Discharge Instructions: Remove the Scopolamine patch that was placed behind your ear in 72 hours or less. Wash your hands after touching. Patient Instructions: Laparoscopic Hysterectomy (DC) Patient Language: [place] Islander Stand Alone Forms: General Discharge Instructions Follow-up/Referrals: Anthony Cruz MD [Physician] - 2 Weeks Discharge Medications: New oxycodone-acetaminophen 5-325 mg tablet 1 tablet PO Q6H PRN (Reason: pain) Qty: 28 0RF ibuprofen 600 mg tablet 600 mg PO Q6H PRN (Reason: pain) Qty: 30 0RF Continued ciprofloxacin HCl [Cipro] 500 mg tablet 500 mg PO Q12H
[2024-11-25] MEDS: DOCUSATE SODIUM 100 MG CAPSULE PO ×2 (11:48→17:50)
[2024-11-25] MEDS: KETOROLAC 30 MG/ML VIAL (*BKC) IV PUSH ×2 (11:50→17:50)
[2024-11-25] MEDS: SIMETHICONE 80 MG TAB.CHEW PO ×2 (11:50→17:50)
[2024-11-26] VITALS: BP 112/76; PULSE 90; RESP 16; TEMP 36.9; O2SAT 98
[2024-11-26] MEDS: KETOROLAC 30 MG/ML VIAL (*BKC) IV PUSH (00:01)
[2024-11-26] MEDS: ACETAMINOPHEN 500 MG TABLET 1000 MG PO ×2 (00:02→06:45)
[2024-11-26 04:00] VITALS: BP 97/49; PULSE 71; RESP 18; TEMP 36.9; O2SAT 99
[2024-11-26] MEDS: SIMETHICONE 80 MG TAB.CHEW PO (06:45)
[2024-11-26] MEDS: DOCUSATE SODIUM 100 MG CAPSULE PO (06:45)
[2024-11-26] MEDS: IBUPROFEN 600 MG TABLET PO (06:45)
[2024-11-26 07:30] VITALS: BP 92/57; PULSE 70; RESP 16; TEMP 36.7; O2SAT 98
== END 2024-11-26 08:30 | disposition home or self-care (01) ==
LOC: ANHSURGERY 06:48 → ANHOB2 10:29
PROVIDERS: PCP Internal Medicine Geriatric Medicine; Visit Provider Student in an Organized Health Care Education/Training Program
PROC: (CPT 58662; principal; 2024-11-25 07:30)
DX: N93.9 Abnormal uterine and vaginal bleeding, unspecified (principal); N94.6 Dysmenorrhea, unspecified; R10.2 Pelvic and perineal pain; N80.329 Endometriosis of the posterior cul-de-sac, unspecified depth; N88.8 Other specified noninflammatory disorders of cervix uteri; N83.8 Other noninflammatory disorders of ovary, fallopian tube and broad ligament
CPT/HCPCS: 58662; 58571; S2900; 88305; 88307; 99199; A9270; J0690; J1100; J1885; J2003; J2004; J2250; J2405; J2704; J3010; J7030; J7120

== ENCOUNTER 2024-12-02 16:03 | Outpatient (CLI) | payer OTHER, SELFPAY ==
--- OUTSIDE RECORDS SUMMARY | 2024-12-02 16:43 | XMS_ITS | Referral Summary ---
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 CLIENT MANAGER Gender Identity Not on file Sexual Orientation Not on file Last Filed Vital Signs Vital Sign Reading Time Taken Comments Blood Pressure 132/82 06/17/2021 8:10 AM RETAIL CLIENT MANAGER Pulse 112 06/17/2021 8:10 AM RETAIL CLIENT MANAGER Temperature 37.3 C (99.1 F) 06/17/2021 8:10 AM RETAIL CLIENT MANAGER Respiratory Rate 16 06/17/2021 8:10 AM RETAIL CLIENT MANAGER Oxygen Saturation 98% 06/17/2021 8:10 AM RETAIL CLIENT MANAGER Inhaled Oxygen Concentration - - Weight 59 kg (130 lb) 04/18/2024 1:58 PM CDT Height 165.1 cm (5' 5) 04/18/2024 1:58 PM CDT Body Mass Index 21.63 04/18/2024 1:58 PM CDT Plan of Treatment Not on file Insurance [facility] CHOICE PLUS [employer]ET[employer] COVENTRY HMO/POS [facility] CHOICE PLUS Care Teams Merchandise Flow Team Leader Relationship Specialty [place] [id number] [place] [address] PCP - General 07/13/08
--- OUTSIDE RECORDS SUMMARY | 2024-12-02 16:43 | XMS_ITS | Clinical Summary ---
Author Organization [facility] Address [address] [place] [address] Care Team Providers Care Sponge Clipper Name Role Phone Denis Cervantes MD Primary Care Provider + Allergies No known active allergies Medications diclofenac sodium (VOLTAREN) 1 % gel Apply 2 g topically 4 (four) times a day 50 g 4 Active Active Problems No known active problems Encounters Date Type Department Care Team Description 09/17/2024 Transcribe Orders [facility] [address] [place] [address] [address] [place] [address] Peyton Modi NP Dysmenorrhea (Primary [...] on file Legal Sex Female 4:22 PM COORDINATE MEASURING EQUIPMENT OPERATOR Gender Identity Not on file Sexual Orientation Not on file Obstetrics History Last Filed Vital Signs Vital Sign Reading Time Taken Comments Blood Pressure 132/82 06/17/2021 8:10 AM COORDINATE MEASURING EQUIPMENT OPERATOR Pulse 112 06/17/2021 8:10 AM COORDINATE MEASURING EQUIPMENT OPERATOR Temperature 37.3 C (99.1 F) 06/17/2021 8:10 AM COORDINATE MEASURING EQUIPMENT OPERATOR Respiratory Rate 16 06/17/2021 8:10 AM COORDINATE MEASURING EQUIPMENT OPERATOR Oxygen Saturation 98% 06/17/2021 8:10 AM COORDINATE MEASURING EQUIPMENT OPERATOR Inhaled Oxygen Concentration - - Weight 59 [...] patient's age to complete this topic Insurance [facility] CHOICE PLUS AETNA COVENTRY HMO/POS [facility] CHOICE PLUS Care Teams Sponge Clipper Relationship Specialty [place] [address] [facility] [place] [address] PCP - General 07/13/08
--- OUTSIDE RECORDS SUMMARY | 2024-12-02 16:43 | XMS_ITS | Continuity of Care Document ---
Author Organization [facility] [place] Address [address] [facility] [address] [place] [address] Phone Care Team Providers Care Black Studies Professor Name Role Phone Brittni Browne OT Unavailable [...] Diagnoses Date Provider Providers Copied on Encounter [facility] [address] [address], [place], [place], [id number], tel:[phone] [place] No Information October-2 9- 5 Browne Brittni. . Referring Provider: Kaycee Knott [address], [place], [address]. tel:[phone] [place], [place] [phone] [facility] [address], [place], [place], [id number], tel:[phone] [place] No Information 2 2- 5 Browne Brittni. . Referring Provider: Kaycee Knott [address], [place], [address]. tel:[phone] [place], [place] [phone] [facility] [address], [place], [place], [id number], tel:[phone] [place] No Information October-1 5-202 5 Browne Brittni. . Referring Provider: Kaycee Knott [address], [place], [address]. tel:[phone] [place] [address] [address] [facility], [place], [place], [id number], tel:[phone] [place] No Information May-0 8-202 5 Browne Brittni. . Referring Provider: Kaycee Knott [address], [place], [address]. tel:[phone] [place], [place] [phone] [address], [place], [place], [id number], tel:[phone] [place] No Information May-0 1-202 5 Browne Brittni. . Referring Provider: Kaycee Knott [address], [place], [address]. tel:[phone] [place] [address], [address], [place], [place], [id number], [place] tel:[phone] [place] No Information Apr-2 4-202 5 Browne Brittni. . Referring Provider: Kaycee Knott [facility] [address], [place], [address]. tel:[phone] [place] [address], [address], [place], [place], [address], [place] tel:[phone] [place] No Information Apr-1 0-202 5 Browne Brittni. . Referring Provider: Kaycee Knott [facility] [address], [place], [address]. tel:[phone] [place] [address], [address], [place], [place], [id number], [place] tel:[phone] [place] No Information Mar-2 7-202 5 Browne Brittni. . Referring Provider: Kaycee Knott [facility] [address], [place], [address]. tel:[phone] [place] [address], [address], [place], [place], [id number], [place] tel:[phone] [place] No Information Mar-2 0-202 5 Browne Brittni. . Referring Provider: Kaycee Knott [facility] [address], [place], [address]. tel:[phone] [place] [address], [address], [place], [place], [address], [place] tel:[phone] [place] No Information Mar-1 3-202 5 Browne Brittni. . Referring Provider: Kaycee Knott [facility] [address], [place], [address]. tel:[phone] [place] [address], [address], [place], [place], [address], [place] tel:[phone] [place] No Information 5 Browne Brittni. . Referring Provider: Kaycee Knott [facility] [address], [place], [address]. tel:[phone] [place], [place] [phone] [address], [place], [place], [id number], tel:[phone] [place] No Information 5 Browne Brittni. . Referring Provider: Kaycee Knott [facility] [address], [place], [address]. tel:[phone] [place] [address], [address], [place], [place], [address], [place] tel:[phone] [place] No Information 5 Browne Brittni. . Referring Provider: Kaycee Knott [facility] [address], [place], [address]. tel:[phone] [place], [place] [phone] [address], [place], [place], [address], [place] tel:[phone] [place] No Information 5 Browne Brittni. . Referring Provider: Kaycee Knott [facility] [address], [place], [address]. tel:[phone] [place] [address] [address], [place], [place], [address], [place] tel:[phone] [place] No Information 5 Browne Brittni. . Referring Provider: Kaycee Knott [facility] [address], [place], [address]. tel:[phone] [place], [place] [phone] [address], [place], [place], [id number], [place] tel:[phone] [place] No Information 5 Browne Brittni. . Referring Provider: Kaycee Knott [facility] [address], [place], [address]. tel:[phone] [place] [address] [address], [place], [place], [address], tel:[phone] [place] No Information Pavan Elkins. . Referring Provider: Mel Brown [address], [place], [address]. tel:[phone] [facility], [address], [place], [place], [address], tel:[phone] [place] No Information Pavan Elkins. . Referring Provider: Mel Brown [address], [place], [address]. tel:[phone] Family History Family Member Type Diagnosis Age At Onset No Information Payers Payer name Insurance type Covered alliance party ID Mali rutledge(s) Derricktna [id number] Social History Type Description Quantity Date Captured [...]
== END 2024-12-02 16:04 | disposition home or self-care (01) ==
LOC: ANHLAB 16:04
PROVIDERS: PCP Internal Medicine Geriatric Medicine; Visit Provider Student in an Organized Health Care Education/Training Program
DX: R30.0 Dysuria (principal)
CPT/HCPCS: 87086

== ENCOUNTER 2025-04-23 08:15 | Emergency (ER) | payer OTHER, SELFPAY ==
--- OUTSIDE RECORDS SUMMARY | 2024-11-13 11:30 | XMS_ITS | Continuity of Care Document ---
Author Organization [facility] [place] Address [address] [place] [address] Phone Care Team Providers Care Stitcher Standard Machine Name Role Phone Brittni Browne OT Unavailable Unavailable Procedures Procedure Date Identified as not an unhealthy alcohol u ser Not identified as unhealthy alcohol via screening OT Re-Evaluation Therapeutic Activities Neuromuscular Re-Ed Therapeutic Exercise Manual Therapy Ultrasound Therapeutic Activities Neuromuscular Re-Ed Therapeutic Exercise Manual Therapy Ultrasound Therapeutic Activities Neuromuscular Re-Ed Therapeutic Exercise Manual Therapy Ultrasound Therapeutic Activities Neuromuscular Re-Ed Therapeutic Exercise Manual Therapy Ultrasound Therapeutic Activities Neuromuscular Re-Ed Therapeutic Exercise Manual Therapy Ultrasound Therapeutic Activities Neuromuscular Re-Ed Therapeutic Exercise Manual Therapy Ultrasound Therapeutic Activities Neuromuscular Re-Ed Therapeutic Exercise Manual Therapy Ultrasound Therapeutic Activities Neuromuscular Re-Ed Therapeutic Exercise Manual Therapy Ultrasound Therapeutic Activities Neuromuscular Re-Ed Therapeutic Exercise Manual Therapy Ultrasound Therapeutic Activities Neuromuscular Re-Ed Therapeutic Exercise Manual Therapy Ultrasound Therapeutic Activities Neuromuscular Re-Ed Therapeutic Exercise Manual Therapy Ultrasound Therapeutic Activities Neuromuscular Re-Ed Therapeutic Exercise Manual Therapy Hot or Cold Pack Therapeutic Activities Neuromuscular Re-Ed Therapeutic Exercise Manual Therapy Hot or Cold Pack Therapeutic Activities Neuromuscular Re-Ed Therapeutic Exercise Manual Therapy Hot or Cold Pack Therapeutic Activities Neuromuscular Re-Ed Therapeutic Exercise Manual Therapy Hot or Cold Pack Therapeutic Activities Neuromuscular Re-Ed Therapeutic Exercise Manual Therapy Hot or Cold Pack Therapeutic Activities Neuromuscular Re-Ed Therapeutic Exercise Manual Therapy Hot or Cold Pack Orthotic Mgmt and Training Wrist Widget Identified as not an unhealthy alcohol u ser Not identified as unhealthy alcohol via screening OT Evaluation Low Complexity Therapeutic Activities Neuromuscular Re-Ed Therapeutic Exercise Manual Therapy Hot or Cold Pack Advance Directives Directive Yes / No Effective Date File Name No Information Encounters Encounter Description Practice Location Reason(s) For Visit Diagnoses Date Provider Providers Copied on Encounter [facility] [address] [address], [place], [place], [id number], tel:[phone] [place] [facility] No Information October-2 9- 5 Browne Brittni. . Referring Provider: Kaycee Knott [address], [place], [address]. tel:[phone] [place], [place] [id number] [address], [place], [place], [id number], tel:[phone] [place] [facility] No Information 2 2- 5 Browne Brittni. . Referring Provider: Kaycee Knott [address], [place], [address]. tel:[phone] [place], [place] [id number] [facility] [address], [place], [place], [id number], tel:[phone] [facility] No Information October-1 5-202 5 Browne Brittni. . Referring Provider: Kaycee Knott [address], [place], [address]. tel:[phone] [place] [address] [address], [place], [place], [id number], tel:[phone] [place] [facility] No Information May-0 8-202 5 Browne Brittni. . Referring Provider: Kaycee Knott [address], [place], [address]. tel:[phone] [place] [id number] [address], [place], [place], [id number], tel:[phone] [facility] No Information May-0 1-202 5 Browne Brittni. . Referring Provider: Kaycee Knott [address], [place], [address]. tel:[phone] [place] [address], [address], [place], [place], [id number], [place] tel:[phone] [facility] No Information Apr-2 4-202 5 Browne Brittni. . Referring Provider: Kaycee Knott [facility] [address], [place], [address]. tel:[phone] [place] [address], [address], [place], [place], [id number], [place] tel:[phone] [facility] No Information Apr-1 0-202 5 Browne Brittni. . Referring Provider: Kaycee Knott [facility] [address], [place], [address]. tel:[phone] [place] [address], [address], [place], [place], [id number], [place] tel:[phone] [facility] No Information Mar-2 7-202 5 Browne Brittni. . Referring Provider: Kaycee Knott [facility] [address], [place], [address]. tel:[phone] [place] [address], [address], [place], [place], [id number], [place] tel:[phone] [facility] No Information Mar-2 0-202 5 Browne Brittni. . Referring Provider: Kaycee Knott [facility] [address], [place], [address]. tel:[phone] [place] [address], [address], [place], [place], [id number], [place] tel:[phone] [facility] No Information Mar-1 3-202 5 Browne Brittni. . Referring Provider: Kaycee Knott [facility] [address], [place], [address]. tel:[phone] [place] [address], [address], [place], [place], [id number], [place] tel:[phone] [facility] No Information 5 Browne Brittni. . Referring Provider: Kaycee Knott [facility] [address], [place], [address]. tel:[phone] [place], [place] [id number] [address], [place], [place], [id number], tel:[phone] [facility] No Information 5 Browne Brittni. . Referring Provider: Kaycee Knott [facility] [address], [place], [address]. tel:[phone] [place] [address], [address], [place], [place], [id number], [place] tel:[phone] [facility] No Information 5 Browne Brittni. . Referring Provider: Kaycee Knott [facility] [address], [place], [address]. tel:[phone] [place], [place] [id number] [address], [place], [place], [id number], [place] tel:[phone] [facility] No Information 5 Browne Brittni. . Referring Provider: Kaycee Knott [facility] [address], [place], [address]. tel:[phone] [place] [address] [address], [place], [place], [id number], [place] tel:[phone] [facility] No Information 5 Browne Brittni. . Referring Provider: Kaycee Knott [facility] [address], [place], [address]. tel:[phone] [place] [id number] [address], [place], [place], [id number], [place] tel:[phone] [facility] No Information 5 Browne Brittni. . Referring Provider: Kaycee Knott [facility] [address], [place], [address]. tel:[phone] [place] [address] [address], [place], [place], [id number], tel:[phone] [facility] No Information Pavan Elkins. . Referring Provider: Mel Brown [address], [place], [address]. tel:[phone] [facility], [address], [place], [place], [id number], tel:[phone] [facility] No Information Pavan Elkins. . Referring Provider: Mel Brown [address], [place], [address]. tel:[phone] Family History Family Member Type Diagnosis Age At Onset No Information Payers Payer name Insurance type Covered republican ID Mali rutledge(s) Derricktna [id number] Social History Type Description Quantity Date Captured Comments Alcohol Use Details Unknown Caffeine Use Details Unknown Tobacco Use Status Current non-smoker Smoking Status Never smoker Non-Smoking Tobacco Use Details : No Details Available : No Details Available Sex Female Chief Complaint And Reason For Visit No Information Reason For Referral Reason For Referral No Information History Of Present Illness Encounter Date Complaint History Of Prese nt Illness No Information Functional Status Date Functional Assessmen t No Information Instructions Date Instruction Additional Infor mation No Information Assessments Type Assessment Date No Information Patient Care Teams Name Effective Dates (start - stop) Status Members No Information
--- OUTSIDE RECORDS SUMMARY | 2024-11-13 11:30 | XMS_ITS | Continuity of Care Document ---
Author Organization [facility] [place] Address [address] [facility] [address] [place] [address] Phone Care Team Providers Care Clinical Staff Pharmacist Name Role Phone Brittni Browne OT Unavailable Unavailable Procedures Procedure Date Identified as not an unhealthy alcohol u ser Not identified as unhealthy alcohol via screening OT Re-Evaluation Therapeutic Activities Neuromuscular Re-Ed Therapeutic Exercise Manual Therapy Ultrasound Therapeutic Activities Neuromuscular Re-Ed Therapeutic Exercise Manual Therapy Ultrasound Therapeutic Activities Neuromuscular Re-Ed Therapeutic Exercise Manual Therapy Ultrasound Therapeutic Activities Neuromuscular Re-Ed Therapeutic Exercise Ultrasound Manual Therapy Therapeutic Activities Neuromuscular Re-Ed Therapeutic Exercise Ultrasound Manual Therapy Therapeutic Activities Neuromuscular Re-Ed Therapeutic Exercise Manual Therapy Ultrasound Therapeutic Activities Neuromuscular Re-Ed Therapeutic Exercise Ultrasound Manual Therapy Therapeutic Activities Neuromuscular Re-Ed Therapeutic Exercise Manual Therapy Ultrasound Therapeutic Activities Neuromuscular Re-Ed Manual Therapy Therapeutic Exercise Ultrasound Therapeutic Activities Neuromuscular Re-Ed Therapeutic Exercise Manual Therapy Ultrasound Therapeutic Activities Neuromuscular Re-Ed Therapeutic Exercise Manual Therapy Ultrasound Therapeutic Activities Neuromuscular Re-Ed Therapeutic Exercise Manual Therapy Hot or Cold Pack Therapeutic Activities Neuromuscular Re-Ed Therapeutic Exercise Manual Therapy Hot or Cold Pack Therapeutic Activities Neuromuscular Re-Ed Therapeutic Exercise Manual Therapy Hot or Cold Pack Therapeutic Activities Therapeutic Exercise Neuromuscular Re-Ed Manual Therapy Hot or Cold Pack Therapeutic Activities Neuromuscular Re-Ed Therapeutic Exercise Manual Therapy Hot or Cold Pack Therapeutic Activities Neuromuscular Re-Ed Therapeutic Exercise Manual Therapy Orthotic Mgmt and Training Hot or Cold Pack Wrist Widget Identified as not an unhealthy alcohol u ser Not identified as unhealthy alcohol via screening OT Evaluation Low Complexity Therapeutic Activities Neuromuscular Re-Ed Therapeutic Exercise Manual Therapy Hot or Cold Pack Advance Directives Directive Yes / No Effective Date File Name No Information Encounters Encounter Description Practice Location Reason(s) For Visit Diagnoses Date Provider Providers Copied on Encounter [facility] [address] [address], [place], [place], [id number], tel:[phone] [place] No Information October-2 9- 5 Browne Brittni. . Referring Provider: Kaycee Knott [address], [place], [address]. tel:[phone] [place], [place] [id number] [facility], [place], [place], [id number], tel:[phone] [place] No Information 2 2- 5 Browne Brittni. . Referring Provider: Kaycee Knott [address], [place], [address]. tel:[phone] [place], [place] [id number] [facility] [address], [place], [place], [id number], tel:[phone] [place] No Information October-1 5-202 5 Browne Brittni. . Referring Provider: Kaycee Knott [address], [place], [address]. tel:[phone] [place] [address] [address] [facility] [address], [place], [place], [id number], tel:[phone] [place] No Information May-0 8-202 5 Browne Brittni. . Referring Provider: Kaycee Knott [address], [place], [address]. tel:[phone] [place], [place] [id number] [address], [place], [place], [id number], tel:[phone] [place] No Information May-0 1-202 5 Browne Brittni. . Referring Provider: Kaycee Knott [address], [place], [address]. tel:[phone] [place] [address], [address], [place], [place], [address], [place] tel:[phone] [place] No Information Apr-2 4-202 5 Browne Brittni. . Referring Provider: Kaycee Knott [facility] [address], [place], [address]. tel:[phone] [place] [address], [address], [place], [place], [address], [place] tel:[phone] [place] No Information Apr-1 0-202 5 Browne Brittni. . Referring Provider: Kaycee Knott [facility] [address], [place], [address]. tel:[phone] [place] [address], [address], [place], [place], [address], [place] tel:[phone] [place] No Information Mar-2 7-202 5 Browne Brittni. . Referring Provider: Kaycee Knott [facility] [address], [place], [address]. tel:[phone] [place] [address], [address], [place], [place], [address], [place] tel:[phone] [place] No Information Mar-2 0-202 5 Browne Brittni. . Referring Provider: Kaycee Knott [facility] [address], [place], [address]. tel:[phone] [place] [address], [address], [place], [place], [address], [place] tel:[phone] [place] No Information Mar-1 3-202 5 Browne Brittni. . Referring Provider: Kaycee Knott [facility] [address], [place], [address]. tel:[phone] [place] [address], [address], [place], [place], [address], [place] tel:[phone] [place] No Information 5 Browne Brittni. . Referring Provider: Kaycee Knott [facility] [address], [place], [address]. tel:[phone] [place], [place] [id number] [address], [place], [place], [address], tel:[phone] [place] No Information 5 Browne Brittni. . Referring Provider: Kaycee Knott [facility] [address], [place], [address]. tel:[phone] [place] [address], [address], [place], [place], [address], [place] tel:[phone] [place] No Information 5 Browne Brittni. . Referring Provider: Kaycee Knott [facility] [address], [place], [address]. tel:[phone] [place], [place] [id number] [address], [place], [place], [address], [place] tel:[phone] [place] No Information 5 Browne Brittni. . Referring Provider: Kaycee Knott [facility] [address], [place], [address]. tel:[phone] [place] [address] [address], [place], [place], [address], [place] tel:[phone] [place] No Information 5 Browne Brittni. . Referring Provider: Kaycee Knott [facility] [address], [place], [address]. tel:[phone] [place], [place] [phone] [address], [place], [place], [address], [place] tel:[phone] [place] No Information 5 Browne Brittni. . Referring Provider: Kaycee Knott [facility] [address], [place], [address]. tel:[phone] [place] [address] [address], [place], [place], [address], tel:[phone] [place] No Information Pavan Elkins. . Referring Provider: Mel Brown [address], [place], [address]. tel:[phone] [facility] [address], [place], [place], [id number], tel:[phone] [place] No Information Pavan Elkins. . Referring Provider: Mel Brown [address], [place], [address]. tel:[phone] Family History Family Member Type Diagnosis Age At Onset No Information Payers Payer name Insurance type Covered republican ID Mali rutledge(s) Derricktna [id number] Social History Type Description Quantity Date Captured [...]
[2025-04-23 08:18] VITALS: BP 117/78; PULSE 109; RESP 16; TEMP 37.2; O2SAT 98
[2025-04-23 08:38] LABS: EDSTREPNEGPOS1 Negative (Negative)
--- NOTE | 2025-04-23 08:45 | ED_ITS ---
HPI - URI/Sore Throat General Chief Complaint: Upper Respiratory Infection Stated Complaint: throat Time Seen by Provider: 04/23/25 08:37 Source: patient and RN notes reviewed Mode of arrival: ambulatory Limitations: no limitations History of Present Illness HPI Narrative: 35-year-old female patient presents today complaining of sore throat cough postnasal drip, nausea, headache since yesterday. She has tried ibuprofen and Benadryl with some mild relief. Denies known sick contacts, cough, shortness of breath, fever. Related Data Home Medications ?Medication ?Instructions ?Recorded ?Confirmed ?Last Taken ?Type No Home Medications 12/08/24 04/23/25 U nknown History Allergies Allergy/AdvReac Type Severity Reaction Status Date / Time latex Allergy Mild Rash Verified 04/23/25 08:36 [facility] Past Medical History Medical History Pelvic pain Abnormal uterine bleeding (AUB) Dysmenorrhea Surgical History Surgical History Status post hysterectomy H/O lymph node excision Family History Family History Father Throat cancer Depression Mother Depression Hypertension Grandparent Diabetes mellitus Other Asthma Social History Social History Alcohol intake: current Alcohol use details: rare Substance use: never Substance use type: does not use Do You Feel Safe in your Home?: Yes Lack of Transportation: No Lack of Food: Never True Current Housing: I Have Housing Concerned About Future Housing: No Difficulty Paying Gas/Electric Bills: No Difficulty Paying for Meds: No Currently Unemployed: No Education: Bachelor's Degree Difficulty w/ Childcare or Family Care: No Living arrangements: with family Occupation/Education: occupation Gender identity (if verbalized by the patient): Female Sexual Orientation (if Verbalized by the Patient): Straight or Heterosexual Spiritual care concerns: No Comments At time of signature, I have reviewed and agree with nursing past medical, surgical, social and family history unless otherwise noted. Please see nursing chart for further information. There is no relevant family history pertinent to the presenting complaint Exam Narrative: GENERAL: Well-appearing, well-nourished, and in no acute distress. HEAD: Normocephalic, atraumatic. EYES: EOMI. No redness or drainage. Conjunctivae normal. ENT: Mucous membranes pink and moist. Nares clear. No rhinorrhea. TMs normal bilaterally. Throat mildly erythematous without edema or exudate. Uvula midline. NECK: Normal AROM. Supple. No lymphadenopathy. CHEST: No respiratory distress. Clear to auscultation. HEART: Regular rate and rhythm. No murmur appreciated. EXTREMITIES: Normal range of motion. No edema. SKIN: Warm, dry, no rash. Capillary refill normal. Normal skin turgor. NEURO: No focal deficits. Alert and oriented x3. Gait steady. PSYCH: Normal affect. No signs of depression or anxiety. Course Course Level of Care: Express Care Visit Vital Signs Vital signs: Vital Signs Temperature 98.9 F 04/23/25 08:18 Pulse Rate 109 H 04/23/25 08:18 Respiratory Rate 16 04/23/25 08:18 Blood Pressure 117/78 04/23/25 08:18 Pulse Oximetry 98 04/23/25 08:18 Oxygen Delivery Room Air 04/23/25 08:18 Temperature 98.9 F 04/23/25 08:18 Pulse Rate 109 H 04/23/25 08:18 Respiratory Rate 16 04/23/25 08:18 Blood Pressure 117/78 04/23/25 08:18 Pulse Oximetry 98 04/23/25 08:18 Oxygen Delivery Room Air 04/23/25 08:18 Reviewed MDM - URI/Sore Throat MDM Narrative Medical decision making narrative: 35-year-old female patient presents today complaining of sore throat cough postnasal drip, nausea, headache since yesterday. She has tried ibuprofen and Benadryl with some mild relief. Denies known sick contacts, cough, shortness of breath, fever. Upon exam patient has a mildly erythematous throat without edema or exudate. Rapid strep negative. Culture pending. Symptoms likely viral in etiology. Discussed cric-mks-[id number] medication use and duration of illness. No prescription medications indicated at this time. Anticipatory guidance given. Vital signs stable. Patient agrees with plan. Differential Diagnosis Differential diagnosis: Likely upper respiratory infection, viral infection, pharyngitis and other (Strep throat) Lab Data Attestation: I reviewed the patient's lab results. Labs: Lab Results 04/23/25 Range/Units 08:24 POC Grp A Strep Screen Negative (Negative) Critical Care Time Critical Care Time Critical Care Time: No Discharge Plan Discharge Clinical Impression: Upper respiratory infection Qualifiers: URI type: unspecified URI Qualified Code(s): J06.9 - Acute upper respiratory infection, unspecified Patient Disposition: Home Condition: Stable Instructions: Upper Respiratory Infection (DC) Additional Instructions: Your rapid strep swab was negative today at [facility]. You will be notified in a few days if the culture comes back positive for strep, and appropriate antibiotics will be called in for you at that time. Your symptoms are likely due to a viral illness, which is not treated with antibiotics. Viral symptoms can be present for up to 7-10 days. Take Tylenol or ibuprofen for fever or pain. Rest and stay hydrated. Follow up with your PCP in 7-10 days if symptoms are not improving. Go to the ER immediately if you have any difficulty breathing or swallowing. Patient Language: Stateless Prescriptions: No Action No Home Medications Follow-up/Referrals: [facility],Denis Odonnell MD [Primary Care Provider, Unknown] Stand Alone Forms: Work/School Release IP Time of Disposition: 08:48
--- OUTSIDE RECORDS SUMMARY | 2025-04-23 17:06 | XMS_ITS | Clinical Summary ---
Author Organization [facility] Address [address] [place] [address] Care Team Providers Care Nursing Manager Name Role Phone Denis Cervantes MD Primary Care Provider + Allergies No known active allergies Medications diclofenac sodium (VOLTAREN) 1 % gel Apply 2 g topically 4 (four) times a day 50 g 4 Active Active Problems No known active problems Surgical History Surgery Date Site/Laterality Comments OTHER [...] on file Legal Sex Female 4:22 PM [employer] Gender Identity Not on file Sexual Orientation Not on file Last Filed Vital Signs Vital Sign Reading Time Taken Comments Blood Pressure 132/82 06/17/2021 8:10 AM [employer] Pulse 112 06/17/2021 8:10 AM [employer] Temperature 37.3 C (99.1 F) 06/17/2021 8:10 AM [employer] Respiratory Rate 16 06/17/2021 8:10 AM IN[employer]CTOR OF SOCIOLOGY Oxygen Saturation 98% 06/17/2021 8:10 AM [employer] Inhaled Oxygen Concentration - - Weight 59 [...] Screening 2009 Regular Well Visit/Exam 18-64 2009 HPV Vaccines (1 - 3-dose SCD M series) 2018 Influenza Vaccine (#1) 2025 DTaP/Tdap/Td Vaccine (2 - Td or Tdap) 12/01/2026 12/01/2016 Pneumococcal vaccine <65 Aged Out No longer eligible based on patient's age to complete this topic Insurance [facility] CHOICE PLUS [employer] COVENTRY HMO/POS [facility] CHOICE PLUS Care Teams Nursing Manager Relationship Specialty [place] [id number] [facility] [address] [place] [address] PCP - General 07/13/08
== END 2025-04-23 08:50 | disposition home or self-care (01) ==
PROVIDERS: Emergency Provider Nurse Practitioner; PCP Internal Medicine Geriatric Medicine
DX: J06.9 Acute upper respiratory infection, unspecified (principal)
CPT/HCPCS: 87081; 87880; 99213; G0463